=== PATIENT | female | born 1935 | race Caucasian/White ===

== ENCOUNTER 2017-01-06 06:31 | Inpatient (IN) | payer MEDICARE, OTHER ==
[~2017-01-06] VITALS: Ht 157.5 cm; Wt 62.7 kg
[2017-01-06 06:55] LABS: APPEARANCE CLEAR (CLEAR); COLOR YELLOW (YELLOW); GLUCOSE NEGATIVE (NEGATIVE); LEUKOCYTE ESTERASE NEGATIVE (NEGATIVE); NITRITE NEGATIVE (NEGATIVE); PROTEIN NEGATIVE (NEGATIVE)
[2017-01-06 06:56] LABS: BILIRUBIN NEGATIVE (NEGATIVE); KETONE SMALL mg/dL (NEGATIVE); UROBILINOGEN NORMAL (NORMAL)
[2017-01-06 07:02] LABS: ALBUMIN 3.3 g/dL (3.4-5.0); ALKALINE PHOSPHATASE 119 U/L (46-116); ALT (SGPT) 155 U/L (10-68); BILIRUBIN - TOTAL 0.69 mg/dL (0.2-1.3); CALC OSMOLALITY 273 mosm/kg (275-300); CALCIUM 8.6 mg/dL (8.5-10.1); CARBON DIOXIDE 24.2 mmol/L (21.0-32.0); CHLORIDE - SERUM 100 mmol/L (98-107); CREATININE - SERUM 1.2 mg/dL (0.6-1.3); GLUCOSE 104 mg/dL (74-106); POTASSIUM - SERUM 3.3 mmol/L (3.5-5.1); PROTEIN - SERUM 6.7 g/dL (6.4-8.2); RED CELLS - URINE RARE /hpf (0-5); SODIUM 136 mmol/L (136-145); UREA NITROGEN 17 mg/dL (7-18); WHITE CELLS - URINE 0-5 /hpf (0-5); eGFR NON AFRICAN AMERICAN 45 mL/min (90-120)
[2017-01-06 07:13] LABS: CKMB 2.1 U/L (0.0-3.6); CREATINE KINASE 384 UL (21-215); TROPONIN-I < 0.017 ng/mL (0.000-0.060)
[2017-01-06 07:32] LABS: HEMATOCRIT 37.5 % (36.0-48.0); HEMOGLOBIN 13.1 g/dL (12-16); MCH 30.5 pg (26.0-34.0); MCHC 34.9 g/dL (31.0-37.0); MCV 87.4 fL (80.0-100.0); MEAN PLATELET VOLUME 9.6 fL (7.4-10.4); PLATELET COUNT 63 10x3/uL (130-400); RBC 4.29 10x6/uL (4.00-5.40); RDW 12.9 % (11.5-14.5); WBC 2.6 10x3/uL (4.8-10.8)
[2017-01-06 08:24] LABS: ANISOCYTOSIS OCC; BASOPHILS 1 % (0-2); LYMPHOCYTES 22 % (15-50); MONOCYTES 15 % (2-11); NEUTROPHILS 61 % (40-80); PLATELET ESTIMATE DECREASED; POIKILOCYTOSIS OCC
--- NOTE | 2017-01-06 09:35 | NUR ---
RECIEVED TO ROOM 2220 FROM ER VIA STRETCHER. IV TO L FA PATENT. COMPLAINING OF GENERALIZED WEAKNESS THAT WORSENED TODAY. FAMILY AT BEDSIDE. DENIES ANY COMPLAINT OF PAIN AT THIS TIME.
[2017-01-06 09:41] VITALS: BP 141/54; Ht 157.5 cm; Wt 62.7 kg
[2017-01-06] MEDS ORDERED: TRIAMTERENE-HCT1 TA1 PO (09:46)
--- NOTE | 2017-01-06 10:51 | NUR ---
RESTING QUIETLY IN BED. IV TO L FA PATENT. NS INFUSING AT 50 CC/HR VIA PUMP. 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
[2017-01-06 12:00] VITALS: BP 131/55
--- NOTE | 2017-01-06 14:38 | NUR ---
DENIES ANY NEEDS AT PRESENT. FAMILY AT BEDSIDE. OFFERED TYLENOL BUT STATES SHE DOESN'T NEED ANY AT THIS TIME.
--- NOTE | 2017-01-06 15:58 | NUR ---
RESTING QUIETLY IN BED. DENIES ANY NEEDS AT THIS TIME.
--- NOTE | 2017-01-06 16:20 | NUR ---
TEMP 100.4. TYLENOL GIVEN.
[2017-01-06 16:32] VITALS: BP 145/64
--- NOTE | 2017-01-06 18:01 | NUR ---
DENIES ANY NEEDS AT PRESENT.
[2017-01-06 20:00] VITALS: BP 102/51
--- NOTE | 2017-01-06 20:00 | NUR ---
ASSESSMENT PER FLOWSHEET. ALERT/ORIENTED IV PATENT LEFT ARM OF NS AT 50CC'S/HR SITE CLEAR FAMILY MEMBERS AT BEDSIDE. TELM. SHOWS SR. SCD'S ON. SR UP X2 CALL LIGHT WITHIN REACH. HOB UP 30 DEGREES.
--- NOTE | 2017-01-06 21:00 | NUR ---
MEDS GIVEN PER AUG. UP WITH HELP TO BR VOIDS WELL ASSISTED BACK TO BED.
--- NOTE | 2017-01-06 23:00 | NUR ---
UP TO BR WITH HELP VOIDS WELL. RELATIVE AT BEDSIDE. ASSISTED BACK TO BED. SR UP X2 CALL LIGHT WITHIN REACH.
[2017-01-07] VITALS: BP 111/61
--- NOTE | 2017-01-07 01:00 | NUR ---
MEDS GIVEN PER MAR.
--- NOTE | 2017-01-07 03:20 | NUR ---
ASSISTED TO BATHROOM VOIDED AND HAD A SMALL STOOL. CLEANED AND DRIED AND ASSISTED BACK TO BED. SR UP X2 CALL LIGHT WITHIN REACH. SCD'S REAPPLIED TO BILAT. LEGS.
[2017-01-07 04:00] VITALS: BP 124/64
[2017-01-07 05:15] LABS: BASOPHILS 1.7 % (0-2); EOSINOPHILS 0 % (0-7); HEMATOCRIT 36.1 % (36.0-48.0); HEMOGLOBIN 12.6 g/dL (12-16); LYMPHOCYTES 33.1 % (15-50); MCH 30.9 pg (26.0-34.0); MCHC 34.9 g/dL (31.0-37.0); MCV 88.5 fL (80.0-100.0); MEAN PLATELET VOLUME 9.9 fL (7.4-10.4); MONOCYTES 14.2 % (2-11); PLATELET COUNT 59 10x3/uL (130-400); RBC 4.08 10x6/uL (4.00-5.40); WBC 2.4 10x3/uL (4.8-10.8)
[2017-01-07 05:46] LABS: ANION GAP 11.7 mmol/L (8-16); CALCIUM 8.1 mg/dL (8.5-10.1); CARBON DIOXIDE 26.3 mmol/L (21.0-32.0); CREATININE - SERUM 1.1 mg/dL (0.6-1.3)
--- NOTE | 2017-01-07 07:30 | NUR ---
RECUEVED PT DURING WALKING ROUNDS. PT RESTING IN BED WITH NO COMPPLANTS OF PAIN OR DISCOMFORT AT THIS TIME. ASSESSMENT DONE PER FLOWSHEET. BED IN LOW POSITION AND CALL LIGHT WITHIN REACH. WILL CONTINUE TO MONITOR.
[2017-01-07 08:01] VITALS: BP 132/60
--- NOTE | 2017-01-07 09:00 | NUR ---
POTASSIUM COVERED AT THIS TIME PER ELECTROLYTE PROTOCOL. ORDERS PLACED FOR REDRAW PER PROTOCOL. WILL CONTINUE TO MONITOR.
--- NOTE | 2017-01-07 11:30 | NUR ---
BEGAN TEACHING AND USE OF I.S. AT THIS TIME. PT TOLERATING WELL. BED IN LOW POSITION AND CALL LIGHT WITHIN REACH. WILL CONTINUE TO MONITOR.
[2017-01-07 11:54] VITALS: BP 124/65
[2017-01-07 16:30] VITALS: BP 126/65
[2017-01-07 20:00] VITALS: BP 140/64
--- NOTE | 2017-01-07 20:00 | NUR ---
ASSESSMENT PER FLOWSHEET. AMBULATING IN HALLWAYS WITH HER DAUGHTER N LAW. IV PATENT LEFT WRIST OF NS AT 50CC'/HR. SITE CLEAR. PT REQUESTING A SHOWER. IV SALINE LOCKED AND PLACED ON DELAY. SHOWER TAKEN WITH HELP OF FAMILY MEMBER. IV RESUMED AFTER HER SHOWER.
--- NOTE | 2017-01-07 21:30 | NUR ---
MEDS GIVEN PER MAR.
--- NOTE | 2017-01-08 | NUR ---
REMAINS AWAKE AND ALERT VISITS WITH HER DAUGHTER N LAW.
--- NOTE | 2017-01-08 01:24 | NUR ---
UP TO BR VOIDS WELL ASSISTED BACK TO BED ANTIBIOTIC HUNG.
[2017-01-08 04:00] VITALS: BP 135/69
[2017-01-08 05:37] LABS: HEMATOCRIT 37.1 % (36.0-48.0); HEMOGLOBIN 12.8 g/dL (12-16); LYMPHOCYTES 53.9 % (15-50); MCH 30.6 pg (26.0-34.0); MCHC 34.5 g/dL (31.0-37.0); MCV 88.8 fL (80.0-100.0); MONOCYTES 13.2 % (2-11); NEUTROPHILS 29.9 % (40-80); PLATELET COUNT 68 10x3/uL (130-400); RBC 4.18 10x6/uL (4.00-5.40); RDW 13.4 % (11.5-14.5)
[2017-01-08 05:39] LABS: WBC 4.1 10x3/uL (4.8-10.8)
[2017-01-08 05:51] LABS: ANION GAP 12.3 mmol/L (8-16); CALCIUM 8.6 mg/dL (8.5-10.1); CARBON DIOXIDE 26.1 mmol/L (21.0-32.0); CREATININE - SERUM 1.1 mg/dL (0.6-1.3); POTASSIUM - SERUM 3.4 mmol/L (3.5-5.1)
--- NOTE | 2017-01-08 07:30 | NUR ---
RECIEVED PT DURING WALKING ROUNDS. PT RESTING IN BED WITH NO COMPLAINTS OF PAIN OR DISCOMFORT AT THIS TIME. ASSESSMENT DONE PER FLOWSHEET. BED IN LOW POSITION AND CALL LIGHT WITHIN REACH, WILL CONTINUE TO MONITOR.
[2017-01-08] MEDS ORDERED: SYNTHROID75 MCG PO (07:48)
[2017-01-08] MEDS ORDERED: ARICEPT10 MG PO (07:48)
[2017-01-08] MEDS ORDERED: VIBRAMYCIN 100100 MG PO (07:49)
[2017-01-08 08:25] VITALS: BP 127/61
--- NOTE | 2017-01-08 08:50 | NUR ---
REMOVED IV PER VERBAL ORDER FROM . CATH INTACT. BAND-AID APPLIED. PT AWAITING DISCHARGE ORDERS. BED IN LOW POSITION AND CALL LIGHT WITHIN REACH. WILL CONTINUE TO MONITOR.
--- NOTE | 2017-01-08 09:52 | NUR ---
HODA met with patient and family. set up with [facility] per her son's request (Dr Chapman) HODA spoke with Nan with [facility] and she stated that they will see patient tomorrow & will call family today. Family aware and will drive patient home in personal car.
--- NOTE | 2017-01-08 10:05 | NUR ---
[facility] ORDERED AND WILL BE DELIVERED TO PATIENT IN HOSPITAL, SENT TO [facility] AND SPOKE WITH KESHIA
--- NOTE | 2017-01-08 10:57 | NUR ---
PT GIVEN DISCHARGE INSTRUCTIONS AND DISCHARGED TO HOME WITH A FAMILY MEMBER.
--- NOTE | 2017-01-08 13:11 | NUR ---
PATIENT DISCHARGED HOME TODAY VIA PERSONAL CAR WITH FAMILY TO DRIVE HOME. PATIENT SET UP WITH HH FROM [facility] AND WILL BE CONTACTED AND SEEN TOMORROW. WALKER DELIVERED BY [facility] BEFORE DISCHARGE
[2017-01-09 03:10] LABS: RMSF IGM 1.03 index (0.00-0.89)
[2017-01-09 12:16] LABS: LYME WB - IGG P18 AB Absent (()); LYME WB - IGG P23 AB Absent (()); LYME WB - IGG P28 AB Absent (()); LYME WB - IGG P30 AB Absent (()); LYME WB - IGG P39 AB Absent (()); LYME WB - IGG P41 AB Absent (()); LYME WB - IGG P45 AB Absent (()); LYME WB - IGG P58 AB Absent (()); LYME WB - IGG P66 AB Absent (()); LYME WB - IGG P93 AB Absent (()); LYME WB - IGG WB INTERP Negative (()); LYME WB - IGM P23 AB Absent (()); LYME WB - IGM P39 AB Present (()); LYME WB - IGM P41 AB Absent (()); LYME WB - IGM WB INTERP Negative (())
[2017-01-12 15:16] LABS: EHRLICHIA CHAFF IGG Negative (Neg:<1:64); EHRLICHIA CHAFF IGM Negative (Neg:<1:20); HGE IGG TITER Negative (Neg:<1:64); HGE IGM TITER Negative (Neg:<1:20)
== END 2017-01-08 10:59 | disposition home health service (06) | DRG 813 ==
LOC: D.ER 06:31 → OBSVTIME 08:37 → D.MS 08:37
PROVIDERS: Emergency Medicine; ADMIT Family Medicine
DX: D69.6 Thrombocytopenia, unspecified (principal); D70.9 Neutropenia, unspecified; R50.81 Fever presenting with conditions classified elsewhere; R53.1 Weakness; I10 Essential (primary) hypertension; E03.9 Hypothyroidism, unspecified; F03.90 Unspecified dementia, unspecified severity, without behavioral disturbance, psychotic disturbance, mood disturbance, and anxiety; W18.30XA Fall on same level, unspecified, initial encounter